=== PATIENT | male | born 1990 | race Asian ===

== ENCOUNTER 2021-02-07 10:13 | Emergency (ER) | payer OTHER ==
[2021-02-07] MEDS ORDERED: MECLIZINE 12.5 MG TABLET PO STA (10:45)
[2021-02-07] MEDS ORDERED: DEXAMETHASONE 10 MG/ML VIAL PO STA (10:45)
[2021-02-07] MEDS ORDERED: CHERRY SYRUP 10 ML UDC PO ONE (10:45)
--- NOTE | 2021-02-07 10:48 | ED Physician Documentation ---
History of Present Illness - Stated complaint Stated Complaint: WEAKNESS/NAUSEA - Chief complaint Chief Complaint: General - History obtained from History obtained from: Patient - History of Present Illness Timing: Today - Additonal information Additional information: 30-year-old male has awakened with acute dizziness accompanied by nausea and vomiting. He has not had this happen to him previously. He states that when he moves his head he will become more dizzy and he will have some vomiting. He has not been ill recently and has not had this previously. Review of Systems Constitutional: denies: Fever, Chills Eyes: reports: Photophobia. denies: Decreased vision Ears: denies: Loss of hearing, Ear pain, Drainage/discharge Nose: denies: Rhinorrhea / runny nose, Congestion Throat: denies: Sore throat Cardiac: denies: Chest pain / pressure, Palpitations Respiratory: denies: Dyspnea, Cough GI: reports: Nausea, Vomiting, Diarrhea. denies: Abdominal Pain, Constipation : denies: Dysuria, Frequency Skin: denies: Rash Musculoskeletal: denies: Neck pain, Back pain, Extremity pain Neurologic: reports: Other (Dizziness with head turning). denies: Generalized weakness, Focal weakness, Numbness PD PAST MEDICAL HISTORY - Past Medical History Past Medical History: Yes Cardiovascular: Hypertension, High cholesterol Respiratory: Sleep apnea, CPAP use Neuro: Headaches Endocrine/Autoimmune: None GI: None : None HEENT: None Psych: Depression, Anxiety, Post traumatic stress disorder Musculoskeletal: Chronic back pain Derm: None - Past Surgical History Past Surgical History: No - Present Medications Home Medications: Ambulatory Orders Medication Instructions Recorded Confirmed Meclizine HCl [Motion Sickness] 25 mg PO Q6HR PRN #20 tablet 02/07/21 Sertraline [Zoloft] 50 mg PO DAILY 02/07/21 02/07/21 traZODone [Desyrel] 50 mg PO HS PRN 02/07/21 02/07/21 - Allergies Allergies/Adverse Reactions: Allergies Allergy/AdvReac Type Severity Reaction Status Date / Time No Known Drug Allergies Allergy Verified 02/07/21 10:23 - Social History Does the pt smoke?: No Smoking Status: Current some day smoker Does the pt drink ETOH?: Yes Does the pt have substance abuse?: No - Immunizations Immunizations are current?: Yes PD ED PE NORMAL - Vitals Vital signs reviewed: Yes (Hypertensive mild) - General General: Alert and oriented X 3, Well developed/nourished, Other (The patient is sitting in a darkened room with sunglasses on.) - HEENT HEENT: Atraumatic, PERRL, EOMI, Other (There are 3 beats of nystagmus to the left and 2 to the right) - Neck Neck: Supple, no meningeal sign, No bony TTP - Cardiac Cardiac: RRR, No murmur - Respiratory Respiratory: No respiratory distress, Clear bilaterally - Abdomen Abdomen: Soft, Non tender - Back Back: No CVA TTP, No spinal TTP - Derm Derm: Normal color, Warm and dry, No rash - Extremities Extremities: No deformity, No edema - Neuro Neuro: Alert and oriented X 3, 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, No motor deficit, No sensory deficit, Normal speech Eye Opening: Spontaneous Motor: Obeys Commands Verbal: Oriented GCS Score: 15 - Psych Psych: Normal mood, Normal affect Results - Vitals Vitals: Vital Signs - 24 hr 02/07/21 02/07/21 02/07/21 10:18 10:30 11:44 Temperature 36.4 C L Heart Rate 70 64 56 L Respiratory 16 18 16 Rate Blood Pressure 141/89 H 143/98 H 129/73 O2 Saturation 100 100 98 02/07/21 12:18 Temperature 37 C Heart Rate 76 Respiratory 14 Rate Blood Pressure 123/78 O2 Saturation 98 Oxygen O2 Source Room air PD MEDICAL DECISION MAKING - ED course Complexity details: reviewed results, re-evaluated patient, considered differential, d/w patient ED course: 30-year-old male with acute vertigo and vomiting has nystagmus on examination he does not have much improvement with the modified Mae performed and he is administered dexamethasone and meclizine orally in the emergency department.The patient has improvement in his symptoms and we will provide a note for work for 2 days and a prescription for some meclizine as well as instructions on a modified Mae. Departure - Departure Disposition: 01 Home, Self Care Clinical Impression: Labyrinthitis Qualifiers: Laterality: unspecified laterality Qualified Code(s): H83.09 - Labyrinthitis, unspecified ear Condition: Stable Instructions: ED Labyrinthitis Follow-Up: Josey Zuniga MD [Primary Care Provider] - Prescriptions: Meclizine HCl [Motion Sickness] 25 mg PO Q6HR PRN #20 tablet PRN Reason: Dizziness Forms: Activity restrictions
[2021-02-07 12:19] VITALS: BP 123/78
== END 2021-02-07 12:34 | disposition home or self-care (01) ==
LOC: ED 10:13
DX: H83.09 Labyrinthitis, unspecified ear (principal); R11.2 Nausea with vomiting, unspecified; I10 Essential (primary) hypertension; Z72.0 Tobacco use
CPT/HCPCS: 99282; 99283; A9270